=== PATIENT | female | born 1965 | race African-American/Black ===

== ENCOUNTER 2019-03-06 17:56 | Emergency (ER) | payer MEDICARE, MEDICAID ==
[~2019-03-06] VITALS: Ht 167.6 cm; Wt 61.4 kg
[2019-03-06 18:00] VITALS: BP 125/89
== END 2019-03-06 18:49 | disposition left against medical advice (07) ==
LOC: ED 17:56
DX: Z91.19 Patient's noncompliance with other medical treatment and regimen (principal)